=== PATIENT | male | born 1985 | race Caucasian/White ===

== ENCOUNTER 2017-03-25 08:45 | Emergency (ER) | payer OTHER ==
[~2017-03-25] VITALS: Ht 182.9 cm; Wt 104.5 kg
[~2017-03-25 08:45] MED LIST: SERT100T PO
[2017-03-25 08:54] VITALS: BP 133/92; PULSE 111; RESP 16; O2SAT 97
[2017-03-25] MEDS ORDERED: LISI1TAB7 PO (09:17)
[2017-03-25] MEDS ORDERED: ALPR0.5T8 PO (09:17)
[2017-03-25] MEDS ORDERED: BUPR-97 PO (09:17)
--- NOTE | 2017-03-25 09:19 | ED.REPORT ---
HPI-Rash / Abscess Date of Service Mar 25, 2017 ED Provider: Kumar Mathias MD Pt is a 32 year old male with a history of HTN who presents to the ED complaining of swelling to the posterior aspect of his right scrotum onset 3 days ago. He c/o associated worsening scrotum pain with erythema, abdominal pain , increased urination, and fever. He denies nausea, vomiting, and any other symptoms. The pt reports that he noticed an ingrown hair a few weeks ago, and he suspects that the swelling is related. Nursing Notes Stated Complaint: ABSCESS/SENT FROM Chief Complaint: Skin Rash/Abscess Nursing Notes Reviewed: Yes Allergies: Coded Allergies: No Known Allergies (Unverified , 03/25/17) Scheduled Bupropion ER (Wellbutrin XL) 150 Mg Tab.er.24h 150 MG PO DAILY Lisinopril / HCTZ 10-12.5 mg (Lisinopril / HCTZ 10-12.5 mg) 1 Each Tablet 1 TAB PO DAILY Sulfamethoxazole/Trimeth 800-160 mg (Bactrim DS) 1 Each Tablet 1 TABLET PO BID Scheduled PRN Alprazolam (Alprazolam) 0.5 Mg Tablet 1-2 TAB PO q6hr PRN PRN For Anxiety Hydrocodone-Acetaminophen 5-325 mg (Hydrocodone-Acetaminophen 5-325 mg) 1 Each Tablet 1 TABLET PO Q4H PRN PRN For Pain General Time Seen by MD: 09:08 Chief Complaint Other (Swelling to scrotum) Hx Obtained From: Patient Arrived By: Walk-in Onset Occurred: 3 days ago Symptom Duration: Since onset Location: : Other (Scrotum) Quality: Painful Severity: Current: Moderate Severity: Maximum: Moderate Recent Healthcare: No recent doctor visit, No recent hospitalization Similar Sx Previous: No Past Medical History Past Medical History Reports: Hypertension, Denies: Congestive heart failure, Diabetes mellitus Reports: Depression Past Surgical History None reported Smoking History Unknown if Ever Smoker Social History Alcohol Use: "Social" Drug Use: Denies drug use Other Social History: Good social support Ambulatory Status Independent Review of Systems + scrotal erythema + scrotal pain Constitutional: Reports: Fever GI: Reports: Abdominal pain (mild), Denies: Nausea, Vomiting Complete sys rev & neg: except as marked. Male: Reports Scrotal swelling Physical Exam Initial Vital Signs Vital Signs (First) Date Time Temp Pulse Resp B/P Pulse Ox O2 Delivery O2 Flow Rate FiO2 03/25/17 08:54 37.3 111 16 133/92 97 Room Air Initial VS: Reviewed Head / Eyes: Atraumatic, Normocephalic Neck: Supple, Full range of motion Respiratory: Breath sounds normal, Clear to auscultation, No respiratory distress Cardiovascular: Regular rate & rhythm, Heart sounds normal, Intact distal pulses Abdomen / GI: Soft, Non-tender Extremities: Vascular intact, Neuro intact Neurologic: Alert, Oriented, Nonfocal Psychiatric: Mood/affect normal, Behavior normal General/Constitutional: Awake, Alert Skin: Warm, Dry, Intact MALE : 1 cm area of swelling with warmth and erythema at posterior aspect of right scrotum without fluctuation or discharge. There are no eschar or necrotic tissues. Interpretation & Diagnostics US EXTREMITY SONOGRAM LIMITED: IMPRESSION: Presumed complex fluid collection in the right perineum, probably representing abscess. Please correlate clinically Irregular complex mass 2.7x1.3x1.0 cm with surrounding hyperemia in abscess. Discussed with radiologist. Dictated by: Jose Samson M.D. on 03/25/2017 at 12:46 Lab Results Interpretation Result Diagram: 03/25/17 1100 03/25/17 1100 Test 03/25/17 11:00 White Blood Count 11.7th/mm3 (3.8-10.1) Red Blood Count 4.83mil/mm3 (4.40-5.80) Hemoglobin 14.7g/dL (13.8-17.2) Hematocrit 42.2% (41.0-50.0) Mean Corpuscular Volume 87.4fL (81-100) Mean Corpuscular Hemoglobin 30.4pg (27.0-35.0) Mean Corpuscular Hemoglobin Concent 34.8% (32.0-37.0) Red Cell Distribution Width 12.2% (12.3-15.4) Platelet Count 347bil/L (150-400) Neutrophils (%) (Auto) 65.5% (40-74) Lymphocytes (%) (Auto) 20.8% (14-46) Monocytes (%) (Auto) 11.8% (4-12) Eosinophils (%) (Auto) 1.3% (0-5) Basophils (%) (Auto) 0.3% (0-3) Sodium Level 134mEq/L (134-144) Potassium Level 4.5mEq/L (3.5-5.2) Chloride Level 95mEq/L (97-108) Carbon Dioxide Level 24mmol/L (18-29) Blood Urea Nitrogen 12mg/dL (6-20) Creatinine 1.00mg/dL (0.76-1.27) Estimat Glomerular Filtration Rate 93mL/min (>59) Glucose Level 88mg/dL (60-99) Calcium Level 10.0mg/dL (8.5-10.1) Total Bilirubin 1.0mg/dL (0.0-1.2) Aspartate Amino Transf (AST/SGOT) 30U/L (0-50) Alanine Aminotransferase (ALT/SGPT) 52U/L (0-44) Alkaline Phosphatase 58U/L (25-150) C-Reactive Protein 1.5mg/dL (0.0-0.5) Total Protein 7.8g/dL (6.4-8.4) Albumin 4.6g/dL (3.4-5.0) Hold Cash Top Tube Received (Received) Procedures Incision & Drainage Abscess I & D Abscess: I make a 1 cm incision and broke up loculations. Time: 12:55 Procedure Performed by: ED physician Consent / Setup / Site Prep: Consent from patient, Time-out performed (1310) , Hand hygiene observed, Stand sterile technique, Standard surgical scrub, Sterile drapes applied Location of Abscess: Posterior aspect of the right scrotrum Skin Preparation Agent: Betadine Local Anesthesia: Lidocaine 1% (5 mL) Procedural Sedation/Analgesia: Sedation: Other (ativan) Incised Abscess with Scalpel: #11 Pus Drained: Medium, Purulent discharge Irrigation: Yes, Copious Post-Procedure / Complications: Packing placed, Drain placed, Culture obtained, Gram stain ordered, Dressing applied, No complications, Condition improved, Tolerated procedure well, Patient stable Re-Eval/Medical Decision Med Decision/Clinical Course Scrotal abscess. Discussed with urology who recommended I&D in the ER by me. I performed incision and drainage as above. Loculations were broken up. Patient was started on Bactrim per their recommendation and will follow up with urology tomorrow. Culture sent. Source of Hx: Old records Re-Evaluation/Progress #1: Time of Eval: :41 Re-Evaluation/Progress Note: Informed pt of plan for US. All questions addressed. Re-Evaluation/Progress #2: Time of Eval: 11:50 Re-Evaluation/Progress Note: Informed pt of plan for treatment. Pt understands and agrees with plan for treatment. All questions addressed. Re-Evaluation/Progress #3: Time of Eval: 12:59 Re-Evaluation/Progress Note: Pt rechecked. Drained the pt's scrotal abscess with his consent. All questions addressed. Re-Evaluation/Progress #4: Time of Eval: 13:28 Re-Evaluation/Progress Note: Informed pt of plan for discharge. Pt understands and agrees with plan for discharge. F/U instructions and RTER warnings given. All questions addressed. Consultation : Referral / Consult Name: Nina Martinez MD Consulted With: Urology Call Returned at: 11:32 [employer] Specialist: Agrees with eval, Agrees with plan Note: Discussed pt's case. She requests Rocephin and discharging with Bactrim. She will call the pt for a follow up. Counseled Regarding: Diagnosis, Lab results, Need for follow-up, When/why to return to ED Discharge & Departure Impression: Primary Impression: Scrotal abscess Disposition: Home Discharge Condition All VS Reviewed: Yes Condition: Stable Patient Instructions: Abscess (ED) Additional Instructions: Thank you for trusting us with your care today. Your abscess was drained today at the Emergency Department. I spoke with our urologist and she will see you tomorrow. Go to your follow up urology appointment tomorrow at 10AM. Do not drink alcohol while you are taking the narcotics. Return to the Emergency Department if you experience any new or concerning symptoms such as worsening redness, swelling, fever, or abdominal pain prior to your follow-up. Referrals: Oswaldo Patterson MD (PCP) Nina Martinez MD Attestation Portions of this note were transcribed by Kaitlynn Brown. I, Dr. Mathias personally performed the history, physical exam and medical decision-making; I reviewed and confirmed the accuracy of the information in the transcribed note. Signed by: Kemi Gould, 03/25/17. copies to: Oswaldo Patterson MD; Nina Martinez MD, Ben M MD Mar 25, 2017 09:19 Kaitlynn Torres Mar 25, 2017 09:46
[2017-03-25] MEDS ORDERED: CIPR-198 PO (10:24)
[2017-03-25] MEDS ORDERED: IBUP800T28 PO (10:24)
[2017-03-25 11:12] LABS: BASOPHILS % (AUTO) 0.3 % (0-3); EOSINOPHILS % (AUTO) 1.3 % (0-5); MONOCYTES % (AUTO) 11.8 % (4-12); Mean Corpuscular Hemoglobin 30.4 pg (27.0-35.0); Mean Corpuscular Volume 87.4 fL (81-100); NEUTROPHILS % (AUTO) 65.5 % (40-74); Platelet Count 347 bil/L (150-400)
[2017-03-25 11:28] VITALS: BP 136/88; PULSE 91; RESP 16; O2SAT 97
[2017-03-25] MEDS ORDERED: Lidocaine 1% 50 mL Inj NERVEBLOCK ONE (11:30)
[2017-03-25] MEDS ORDERED: cefTRIAXone Inj 1,000 MG, Lidocaine PF 1% Inj 2.1 ML in Syringe 0 EACH IM ONE (11:40)
[2017-03-25] MEDS ORDERED: HYDR-4003 PO (13:29)
[2017-03-25] MEDS ORDERED: SULF1TAB7 PO (13:29)
--- NOTE | 2017-03-25 13:50 | DRSVH ---
PROCEDURE: US EXTREMITY SONOGRAM LIMITED ([id number]) INDICATIONS: r/o scrotal abscess TECHNIQUE: Real-time scanning was performed Of the scrotum, with image documentation. COMPARISON: None. FINDINGS: In the right perineum, there is an irregular complex mass versus fluid collection measuring 2.7 x 1.2 x 1.0 cm, with surrounding hyperemia. There are internal echoes and enhanced through-trans mission IMPRESSION: Presumed complex fluid collection in the right perineum, probably representing abscess. P lease correlate clinically Dictated by: Jose Samson M.D. on 03/25/2017 at 12:46 Approved by: Jose Samson M.D. on 03/25/2017 at 12:48
[2017-03-25 14:02] VITALS: BP 119/80; PULSE 105; RESP 16; O2SAT 96
== END 2017-03-25 14:03 | disposition home or self-care (01) ==
LOC: SED 08:45
DX: N49.2 Inflammatory disorders of scrotum (principal); I10 Essential (primary) hypertension; F32.9 Major depressive disorder, single episode, unspecified
CPT/HCPCS: 36415; 55100; 76882; 80053; 85025; 86140; 87070; 87205; 96372; 99285; J0696; J1885; J2060